=== PATIENT | male | born 1965 | race Caucasian/White ===

== ENCOUNTER 2017-05-02 19:50 | Emergency (ER) | payer OTHER ==
[~2017-05-02] VITALS: Ht 182.9 cm; Wt 78.9 kg
[~2017-05-02 19:50] MED LIST: ASPIR-LOW81 MG PO; CITALOPRAM HBR20 MG PO; CLOPIDOGREL75 MG PO; LISINOPRIL2.5 MG PO; LOPRESSOR25 MG PO; LOVASTATIN40 MG PO; MOTRIN800 MG PO
[2017-05-02 20:15] LABS: HEMATOCRIT 43.1 % (38.0-50.0); MCH 30.6 PG (29.0-34.0); MCHC 34.1 G/DL (30.0-36.0); MCV 89.8 FL (86-99); MEAN PLAT.VOLUME 9.6 uM^3 (9.0-12.4); PLATELET COUNT 206 K/uL (156-360); RBC DIS.WIDTH-CV 12.4 % (11.8-14.6); RBC DIS.WIDTH-SD 40.9 % (39-53)
[2017-05-02 20:16] LABS: ADD MIUA? YES; BILIRUBIN NEGATIVE; BLOOD NEGATIVE; COLOR AMBER ((YELLOW)); GLUCOSE (STRIP) NEGATIVE; KETONES 5; LEUKOCYTES NEGATIVE; NITRITE POSITIVE; PROTEIN (STRIP) 30; SPECIFIC GRAVITY 1.021 (1.000-1.030)
[2017-05-02 20:23] LABS: BACTERIA NONE SEEN /HPF; EPITHELIAL CELLS RARE /HPF; MUCUS TRACE /LPF; RED BLOOD CELLS 0-5 /HPF (0-5); UCUL ADDED? NO; WHITE BLOOD CELLS 0-5 /HPF (0-5)
[2017-05-02 21:35] LABS: ANION GAP 11 MEQ/L (2-14); CHLORIDE 102 MEQ/L (99-109); POTASSIUM 4.4 MEQ/L (3.7-5.4); SAMPLE HEMOLYSIS CHECK 0; SAMPLE ICTERIC CHECK 0; SAMPLE LIPEMIA CHECK 0; SODIUM 136 MEQ/L (136-147)
[2017-05-02 21:40] LABS: GFR ESTIMATE (CALCULATED) > 59 mL/min/; GLUCOSE 97 mg/dL (70-99); UREA NITROGEN (BUN) 15 mg/dL (9-23)
[2017-05-02] MEDS ORDERED: CIPRO500 MG PO (22:35)
[2017-05-02 23:01] VITALS: BP 109/79
[2017-05-03] MEDS ORDERED: VIBRAMYCIN100 MG PO (18:30)
[2017-05-03] MEDS ORDERED: ZOFRAN ODT4 MG PO (18:30)
== END 2017-05-02 23:25 | disposition home or self-care (01) ==
LOC: EME 19:50
DX: N39.0 Urinary tract infection, site not specified (principal); I10 Essential (primary) hypertension; F32.9 Major depressive disorder, single episode, unspecified; E78.5 Hyperlipidemia, unspecified; Z87.891 Personal history of nicotine dependence
CPT/HCPCS: 80048; 81003; 85027; 99281; 99285; J0744; J1885; J7030

== ENCOUNTER 2017-05-03 15:18 | Emergency (ER) | payer OTHER ==
[~2017-05-03] VITALS: Ht 182.9 cm; Wt 79.8 kg
[~2017-05-03 15:18] MED LIST changes: +CIPRO500 MG PO
[2017-05-03 17:24] LABS: EOSINOPHIL (%) 0 % (0-5); HEMATOCRIT 40.9 % (38.0-50.0); IMMATURE GRANULOCYTE (%) 0.5 % (0.0-0.7); INSTRUMENT ABS NEUTROPHIL CT 4.8 K/uL; LYMPHOCYTE COUNT 0.5 K/uL (1.0-2.8); MCH 30.3 PG (29.0-34.0); MCV 89.3 FL (86-99); MEAN PLAT.VOLUME 9.8 uM^3 (9.0-12.4); MONOCYTE (%) 10.3 % (3-12); MONOCYTE COUNT 0.6 K/uL (0-0.8); NEUTROPHIL COUNT 4.8 K/uL (1.8-6.4); PLATELET COUNT 172 K/uL (156-360); RBC DIS.WIDTH-CV 12.4 % (11.8-14.6); RBC DIS.WIDTH-SD 40.7 % (39-53); RED BLOOD COUNT 4.58 M/uL (4.00-5.50)
[2017-05-03 17:29] LABS: ADD MIUA? NO; BILIRUBIN NEGATIVE; BLOOD NEGATIVE; COLOR YELLOW ((YELLOW)); GLUCOSE (STRIP) NEGATIVE; KETONES 20; LEUKOCYTES NEGATIVE; NITRITE NEGATIVE; PROTEIN (STRIP) 30; SPECIFIC GRAVITY 1.016 (1.000-1.030); UCUL ADDED? NO; UROBILINOGEN 0.2 MG/DL (0.2-1.0)
[2017-05-03 17:37] LABS: CHLORIDE 101 mEq/L (99-109); POTASSIUM 4.2 mEq/L (3.7-5.4); SODIUM 133 mEq/L (136-147)
[2017-05-03 17:39] LABS: GLUCOSE 101 mg/dL (70-99)
[2017-05-03 17:40] LABS: ANION GAP 10 MEQ/L (2-14)
[2017-05-03 17:43] LABS: GFR ESTIMATE (CALCULATED) > 59 mL/min/
[2017-05-03 17:44] LABS: UREA NITROGEN (BUN) 16 mg/dL (9-23)
[2017-05-03] MEDS ORDERED: VIBRAMYCIN100 MG PO (18:30)
[2017-05-03] MEDS ORDERED: ZOFRAN ODT4 MG PO (18:30)
[2017-05-03 19:03] LABS: LIPASE 26 U/L (1.0-51.0)
[2017-05-03 19:11] VITALS: BP 108/76
[2017-05-04 10:17] LABS: LYME DISEASE SEROLOGY SCREEN NEGATIVE (NEGATIVE)
== END 2017-05-03 19:11 | disposition home or self-care (01) ==
LOC: EME 15:18
DX: A69.20 Lyme disease, unspecified (principal); N30.90 Cystitis, unspecified without hematuria; N20.0 Calculus of kidney; Z87.440 Personal history of urinary (tract) infections; Z87.442 Personal history of urinary calculi; I10 Essential (primary) hypertension; E78.5 Hyperlipidemia, unspecified; I25.2 Old myocardial infarction; Z95.5 Presence of coronary angioplasty implant and graft; Z79.82 Long term (current) use of aspirin; Z87.891 Personal history of nicotine dependence
CPT/HCPCS: 74176; 80048; 81003; 83605; 83690; 85025; 86618; 87040; 99281; 99283; J2405; J7030